=== PATIENT | female | born 1935 | race Caucasian/White ===

== ENCOUNTER 2017-05-30 08:00 | Emergency (ER) | payer MEDICARE, BC ==
[~2017-05-30] VITALS: Ht 162.6 cm; Wt 56.7 kg
[2017-05-30] MEDS ORDERED: EZET10TA13 PO (08:11)
[2017-05-30] MEDS ORDERED: VALS80TA2 PO (08:11)
--- NOTE | 2017-05-30 08:18 | NUR ---
Dr Murphy at the bedside for eval and exam.
[2017-05-30 08:50] VITALS: BP 152/55
[2017-05-30] MEDS ORDERED: NEOMY/BACITRA/POLYMYXIN B OINT UD PACKET TP ONE ×2 (08:52→09:00)
[2017-05-30] MEDS ORDERED: LIDOCAINE HCL 2% 20 ML VIAL TP ONE (09:00)
--- NOTE | 2017-05-30 09:03 | NUR ---
Patient discharged to home in stable conditon. Written and verbal after care instructions given. Patient verbalizes understanding of instructions.
== END 2017-05-30 09:04 | disposition home or self-care (01) ==
LOC: ER 08:00
DX: S61.216A Laceration without foreign body of right little finger without damage to nail, initial encounter (principal); Z88.2 Allergy status to sulfonamides; I10 Essential (primary) hypertension; E78.5 Hyperlipidemia, unspecified; W45.8XXA Other foreign body or object entering through skin, initial encounter; Y93.89 Activity, other specified; Y92.9 Unspecified place or not applicable; Y99.9 Unspecified external cause status
CPT/HCPCS: 12002; 99283; A4663